=== PATIENT | female | born 1945 | race Caucasian/White ===

== ENCOUNTER 2017-07-27 11:54 | Inpatient (IN) | payer MEDICARE ==
[~2017-07-27] VITALS: Ht 154.9 cm; Wt 50.0 kg
[2017-07-27] MEDS ORDERED: SODIUM CHLOR 0.9% 1000 ML INJ 1,000 ML IV SCH ×2 (12:18→14:46)
--- NOTE | 2017-07-27 12:27 | PD ---
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 She is brought in by her daughter today as she has not been eating or drinking for the past several days and has decreased urinary output as well as severe weakness and dizziness. There has been no specific complaints of fever, chest pain, shortness of breath, abdominal pain, nausea, vomiting, or diarrhea. There is no dysuria. She states the pain is 10 out of 10 in her right face and lateral right neck. Rash is somewhat improved according to her daughter. She has no known drug allergies. PFSH Past Medical History Cardiovascular Problems: Yes (HTN) Respiratory: Yes (ASTHMA) Social History Alcohol Use: No Tobacco Use: No Substance Use: No Allergies-Medications (Allergen,Severity, Reaction): Coded Allergies: No Known Allergies (Unverified , 07/27/17) Reported Meds & Prescriptions Reported Meds & Active Scripts Active Reported Symbicort Inh (Budesonide/Formoterol Fumarate) 80-4.5 Mcg/Act Aero 2 Puff INH Q12HR Methotrexate 2.5 Mg Tab 2.5 Mg PO Q7D Tizanidine (Tizanidine HCl) 4 Mg Cap 4 Mg PO TID Lisinopril-Hctz 10-12.5 Mg Tab 1 Tab PO DAILY Folic Acid 0.8 Mg Tab 1 Mg PO DAILY Allopurinol 100 Mg Tab 100 Mg PO DAILY Atenolol 25 Mg Tab 25 Mg PO DAILY Celecoxib 200 Mg Cap 200 Mg PO BID Acetaminophen-Codeine 300-30 mg Tab 1 Tab PO TID PRN Omeprazole 40 Mg Cap 40 Mg PO DAILY Review of Systems Except as stated in HPI: all other systems reviewed are Neg General / Constitutional: Positive: Weight Loss, No: Fever, Chills Eyes: No: Visual changes HENT: Positive: Headaches, Sore Throat, Neck Pain (see history of present illness), Earache (right from shingles), No: Vertigo, Lightheadedness, Rhinitis , Rhinorrhea, Congestion, Nosebleed, Neck Stiffness, Gingival Bleeding, Dental Difficulties, Ear Discharge Cardiovascular: No: Chest Pain or Discomfort Respiratory: No: Cough, Shortness of Breath, Wheezing Gastrointestinal: Positive: Dysphagia, Loss of Appetite, No: Nausea, Vomiting, Diarrhea, Abdominal Pain Genitourinary: No: Dysuria Musculoskeletal: No: Pain Skin: Positive Rash, Positive Lesions (see history present illness) Neurologic: Positive: Weakness, Dizziness, No: Syncope, Focal Abnormalities, Coordination Problem, Tremor, Ataxia, Headache, Change in Mentation, Slurred Speech, Paresthesia, Incontinence, Seizures, Sensory Disturbance Psychiatric: No: Depression Endocrine: No: Polydipsia Hematologic/Lymphatic: No: Easy Bruising Physical Exam Narrative GENERAL: Patient appears much older than her stated age. Patient has obvious severe weakness. SKIN: Warm and dry. Patient has normal color. Very poor turgor with tenting of the skin noted. Patient has crusted rash to the right anterior neck, and trigeminal distribution on the face. HEAD: Atraumatic. Normocephalic. EYES: Pupils equal and round. No scleral icterus. No injection or drainage. ENT: No nasal bleeding or discharge. Mucous membranes injected and very dry. Airway is patent. Uvula is midline. No significant lymphadenopathy. Question of shingles rash in the posterior pharynx. NECK: Trachea midline. Supple and nontender except for where skin lesions are. CARDIOVASCULAR: Regular rate and rhythm. RESPIRATORY: No accessory muscle use. Clear to auscultation. Breath sounds equal bilaterally. GASTROINTESTINAL: Abdomen soft, non-tender, nondistended. Hepatic and splenic margins not palpable. MUSCULOSKELETAL: Extremities without clubbing, cyanosis, or edema. No obvious deformities. NEUROLOGICAL: Awake and alert. No obvious cranial nerve deficits. Motor grossly within normal limits. Five out of 5 muscle strength in the arms and legs. Normal speech. PSYCHIATRIC: Appropriate mood and affect; insight and judgment normal. Data Data Last Documented VS Vital Signs Date Time Temp Pulse Resp B/P (MAP) Pulse Ox O2 Delivery O2 Flow Rate FiO2 07/27/17 13:52 131 20 152/81 (104) 97 Room Air 07/27/17 12:29 97.4 Orders Orders Complete Blood Count With Diff (07/27/17 12:18) Comprehensive Metabolic Panel (07/27/17 12:18) Lactic Acid (07/27/17 12:18) Prothrombin Time / Inr (Pt) (07/27/17 12:18) Act Partial Throm Time (Ptt) (07/27/17 12:18) Urinalysis - C+S If Indicated (07/27/17 12:18) Iv Access Insert/Monitor (07/27/17 12:18) Ecg Monitoring (07/27/17 12:18) Oximetry (07/27/17 12:18) Morphine Inj (Morphine Inj) (07/27/17 12:30) Ondansetron Inj (Zofran Inj) (07/27/17 12:30) Sodium Chlor 0.9% 1000 Ml Inj (Ns 1000 M (07/27/17 12:18) Sodium Chloride 0.9% Flush (Ns Flush) (07/27/17 12:30) Electrocardiogram (07/27/17 12:18) Chest, Single Ap (07/27/17 12:18) Magnesium (Mg) (07/27/17 12:18) Urine Culture (07/27/17 13:45) Piperacil-Tazo 4.5 Gm Premix (Zosyn 4.5 (07/27/17 14:31) Blood Culture (07/27/17 14:37) Sodium Chlor 0.9% 1000 Ml Inj (Ns 1000 M (07/27/17 14:46) Labs Laboratory Tests Test 07/27/17 12:40 07/27/17 13:45 White Blood Count 12.1 TH/MM3 Red Blood Count 4.42 MIL/MM3 Hemoglobin 15.9 GM/DL Hematocrit 45.7 % Mean Corpuscular Volume 103.4 FL Mean Corpuscular Hemoglobin 36.0 PG Mean Corpuscular Hemoglobin Concent 34.8 % Red Cell Distribution Width 13.8 % Platelet Count 285 TH/MM3 Mean Platelet Volume 8.0 FL Neutrophils (%) (Auto) 56.6 % Lymphocytes (%) (Auto) 25.6 % Monocytes (%) (Auto) 16.5 % Eosinophils (%) (Auto) 0.2 % Basophils (%) (Auto) 1.1 % Neutrophils # (Auto) 6.9 TH/MM3 Lymphocytes # (Auto) 3.1 TH/MM3 Monocytes # (Auto) 2.0 TH/MM3 Eosinophils # (Auto) 0.0 TH/MM3 Basophils # (Auto) 0.1 TH/MM3 CBC Comment DIFF FINAL Differential Comment Prothrombin Time 10.6 SEC Prothromb Time International Ratio 1.0 RATIO Activated Partial Thromboplast Time 25.9 SEC Blood Urea Nitrogen 21 MG/DL Creatinine 0.83 MG/DL Random Glucose 108 MG/DL Total Protein 8.5 GM/DL Albumin 3.7 GM/DL Calcium Level 9.4 MG/DL Magnesium Level 1.9 MG/DL Alkaline Phosphatase 77 U/L Aspartate Amino Transf (AST/SGOT) 31 U/L Alanine Aminotransferase (ALT/SGPT) 21 U/L Total Bilirubin 0.5 MG/DL Sodium Level 123 MEQ/L Potassium Level 4.1 MEQ/L Chloride Level 87 MEQ/L Carbon Dioxide Level 23.8 MEQ/L Anion Gap 12 MEQ/L Estimat Glomerular Filtration Rate 68 ML/MIN Lactic Acid Level 2.2 mmol/L Urine Color YELLOW Urine Turbidity HAZY Urine pH 6.0 Urine Specific [place] 1.018 Urine Protein 100 mg/dL Urine Glucose (UA) NEG mg/dL Urine Ketones 40 mg/dL Urine Occult Blood MOD Urine Nitrite NEG Urine Bilirubin NEG Urine Urobilinogen LESS THAN 2.0 MG/DL Urine Leukocyte Esterase LARGE Urine RBC 40 /hpf Urine WBC 77 /hpf Urine Squamous Epithelial Cells 1 /hpf Urine Bacteria MANY /hpf Urine Mucus FEW /lpf Microscopic Urinalysis Comment CULTURE INDICATED MDM Medical Decision Making Medical Screen Exam Complete: Yes Emergency Medical Condition: Yes Medical Record Reviewed: Yes Differential Diagnosis Facial pain from shingles. Severe dehydration. Electrolyte imbalance. Renal insufficiency. Narrative Course Patient appears medically stable although severely dehydrated and in pain. Labs ordered including CBC, CMP, lactic acid, urinalysis, and magnesium. IV access is obtained and the patient is given 4 mg morphine IV as well as 4 mg Zofran IV. Patient is given 1000 mL's normal saline bolus. Chest x-ray and EKG are ordered as well. EKG shows sinus tachycardia at a rate of 121. Chest x-ray shows possible right lower lobe consolidation. CBC shows leukocytosis of 12.1. CMP significant for sodium 123. Potassium is 4.1, chloride is 87. BUN is 21. Creatinine 0.83. Lactic acid is 2.2. Total protein is 8.5. Coagulation studies are normal. Urinalysis significant for a protein of 100, ketones of 40, moderate occult blood, large leukocyte esterase, 40 RBCs per high-power field, 77 WBCs per high- powered field, many bacteria, and culture is placed Patient is given 4.5 mg of Zosyn IV. Patient is given an additional liter of normal saline bolus. Hospitalist's call for admission. 1510 hrs. discussed the patient with Dr. Hall who accepted the patient for admission. Diagnosis Primary Impression: Urinary tract infection Qualified Codes: N30.01 - Acute cystitis with hematuria Additional Impressions: Hyponatremia Sepsis Qualified Codes: A41.9 - Sepsis, unspecified organism Shingles Qualified Codes: B02.9 - Zoster without complications Admitting Information Admitting Physician Requests: Admit Condition: Stable Cortes Tee Jul 27, 2017 12:27
[2017-07-27 12:29] VITALS: BP 139/67; PULSE 139; RESP 20; TEMP 97.4; O2SAT 99
[2017-07-27] MEDS ORDERED: SODIUM CHLORIDE 0.9% FLUSH 10 ML FLUSH IV FLUSH PRN ×2 (12:30→15:30)
[2017-07-27] MEDS ORDERED: ONDANSETRON HCL 4 MG/2 ML VIAL IVP ONE (12:30)
[2017-07-27] MEDS ORDERED: MORPHINE SULFATE 4 MG/ML INJ IV PUSH ONE (12:30)
[2017-07-27 13:17] LABS: AUTOMATED NEUTROPHIL # 6.9 TH/MM3 (1.8-7.7); BASOPHIL # 0.1 TH/MM3 (0-0.2); BASOPHIL % 1.1 % (0.0-2.0); EOSINOPHIL % 0.2 % (0.0-4.0); HEMATOCRIT 45.7 % (35.0-46.0); HEMO FLAGS DIFF FINAL; LYMPH % 25.6 % (9.0-44.0); LYMPHOCYTE # 3.1 TH/MM3 (1.0-4.8); MEAN CELL VOLUME 103.4 FL (80.0-100.0); MEAN CORPUSCULAR HGB CONC 34.8 % (32.0-36.0); MONO % 16.5 % (0.0-8.0); NEUT % 56.6 % (16.0-70.0); PLATELET COUNT 285 TH/MM3 (150-450); RED BLOOD COUNT 4.42 MIL/MM3 (4.00-5.30); RED CELL DISTRIBUTION WIDTH 13.8 % (11.6-17.2); WHITE BLOOD COUNT 12.1 TH/MM3 (4.0-11.0)
[2017-07-27 13:26] LABS: APTT (PATIENT) 25.9 SEC (24.3-30.1); PROTHROMBIN TIME - PATIENT 10.6 SEC (9.8-11.6)
[2017-07-27] MEDS ORDERED: METH2.5T PO (13:36)
[2017-07-27] MEDS ORDERED: ACET300T2 PO (13:36)
[2017-07-27] MEDS ORDERED: FOLI800T PO (13:36)
[2017-07-27] MEDS ORDERED: TIZA4CAP3 PO (13:36)
[2017-07-27] MEDS ORDERED: ATEN25TA PO (13:36)
[2017-07-27] MEDS ORDERED: ALLO100T PO (13:36)
[2017-07-27] MEDS ORDERED: SYMB80AE INH (13:36)
[2017-07-27] MEDS ORDERED: CELE1CAP8 PO (13:36)
[2017-07-27] MEDS ORDERED: OMEP40CA2 PO (13:36)
[2017-07-27] MEDS ORDERED: LISI10TA PO (13:36)
--- NOTE | 2017-07-27 13:48 | RADRPT ---
EXAM DATE/TIME: 07/27/2017 12:53 [facility] COMPARISON: No previous studies available for comparison. INDICATIONS : Fever, weakness, short of breath, vertigo, shingles on back of head and neck MEDICAL HISTORY : asthma, shingles SURGICAL HISTORY : None. ENCOUNTER: Initial ACUITY: 1 week PAIN SCORE: 3/10 LOCATION: Bilateral chest FINDINGS: There is some consolidation in the right lower lobe. Left lung is clear. The heart and pulmonary va scularity are normal. The portion of the bony skeleton visualized is unremarkable. CONCLUSION: Minimal right lower lobe consolidation.. Fredi Wall MD FACR on July 27, 2017 at 13:45 Board Certified Radiologist. This report was verified electronically.
[2017-07-27 13:50] LABS: ALKALINE PHOSPHATASE 77 U/L (45-117); ALT (GPT) 21 U/L (10-53); ANION GAP 12 MEQ/L (5-15); AST (GOT) 31 U/L (15-37); BICARBONATE 23.8 MEQ/L (21.0-32.0); CHLORIDE 87 MEQ/L (98-107); GLOMERULAR FILTRATION RATE 68 ML/MIN (>89); MAGNESIUM 1.9 MG/DL (1.5-2.5); POTASSIUM 4.1 MEQ/L (3.5-5.1); TOTAL BILIRUBIN ADULT 0.5 MG/DL (0.2-1.0)
[2017-07-27 13:52] VITALS: BP 152/81; PULSE 131; RESP 20; O2SAT 97
[2017-07-27 13:53] LABS: BLOOD UREA NITROGEN 21 MG/DL (7-18)
[2017-07-27 13:55] LABS: SODIUM (NA) 123 MEQ/L (136-145)
[2017-07-27 14:09] LABS: BACTERIA, URINE MANY /hpf; BLOOD, URINE MOD (NEG); GLUCOSE,URINE NEG (NEG); KETONE, URINE 40 mg/dL (NEG); MUCUS URINE FEW /lpf (OCC); NITRITE,URINE NEG (NEG); SQUAMOUS EPITHELIAL CELL URINE 1 /hpf (0-5); URINE COLOR YELLOW (YELLW/STRAW)
[2017-07-27 14:11] LABS: COMMENT (UR) CULTURE INDICATED; CULTURE IF INDICATED CULTURE INDICATED
[2017-07-27] MEDS ORDERED: PIPERACIL-TAZO 4.5 GM PREMIX 100 ML IV STA (14:31)
--- NOTE | 2017-07-27 15:20 | HHI.HP ---
[facility] Ad[facility] Diagnosis Diagnoses: Chief Complaint: Decreased Appetite and do not want to drink water. Travel History International Travel<30 Days: No Contact w/Intl Traveler <30 Da: No Traveled to Known Affected Are: No History of Present Illness This is a pleasant 72 y/o Female with Asthma, who came to ER with 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 There has been no specific complaints of fever, chest pain, shortness of breath, abdominal pain, nausea, vomiting, or diarrhea. There is no dysuria. She states the pain is 10 out of 10 in her right face and lateral right neck. Rash is somewhat improved according to her daughter. She has no known drug allergies. she is been seen in Emergency room in the presence of her daughter Mrs. Mariama Aguayo. Review of Systems ROS Limitations: Altered Mental Status Constitutional: DENIES: Fever, Chills, Change in appetite Endocrine: DENIES: Heat/cold intolerance Eyes: DENIES: Blurred vision, Eye pain Gastrointestinal: COMPLAINS OF: Anorexia Except as stated in HPI: all other systems reviewed are Neg Past Family Social History Past Medical History Hypertension Asthma RA Past Surgical History Tonsillectomy Reported Medications Reported Meds & Active Scripts Active Reported Symbicort Inh (Budesonide/Formoterol Fumarate) 80-4.5 Mcg/Act Aero 2 Puff INH Q12HR Methotrexate 2.5 Mg Tab 2.5 Mg PO Q7D Tizanidine (Tizanidine HCl) 4 Mg Cap 4 Mg PO TID Lisinopril-Hctz 10-12.5 Mg Tab 1 Tab PO DAILY Folic Acid 0.8 Mg Tab 1 Mg PO DAILY Allopurinol 100 Mg Tab 100 Mg PO DAILY Atenolol 25 Mg Tab 25 Mg PO DAILY Celecoxib 200 Mg Cap 200 Mg PO BID Acetaminophen-Codeine 300-30 mg Tab 1 Tab PO TID PRN Omeprazole 40 Mg Cap 40 Mg PO DAILY Allergies: Coded Allergies: No Known Allergies (Unverified , 07/27/17) Family History Mother with DM II, Uterine cancer Father with Autoimmune disease Lupus Brother with Lupus and RA. Social History Lives with her Daughter and denies any toxic habits. Physical Exam Vital Signs Vital Signs Date Time Temp Pulse Resp B/P (MAP) Pulse Ox O2 Delivery O2 Flow Rate FiO2 07/27/17 13:52 131 20 152/81 (104) 97 Room Air 07/27/17 12:29 97.4 139 20 139/67 (91) 99 Room Air 07/27/17 12:29 143 20 07/27/17 12:29 99 Room Air Physical Exam GENERAL: Dehydrated, no acute distress. pale and dry mouth. SKIN: Warm and dry. Patient has normal color. Very poor turgor with tenting of the skin noted. Patient has crusted rash to the right anterior neck, and trigeminal distribution on the face. HEAD: Atraumatic. Normocephalic. EYES: Pupils equal and round. No scleral icterus. No injection or drainage. ENT: No nasal bleeding or discharge. dry mucous membranes. NECK: Trachea midline. Supple and nontender except for where skin lesions are. CARDIOVASCULAR: Regular rate and rhythm. RESPIRATORY: Decreased breath sounds bilateral, with inspiratory crackles on both bases specially on Right base. GASTROINTESTINAL: Abdomen soft, non-tender, nondistended. Hepatic and splenic margins not palpable. MUSCULOSKELETAL: Extremities without clubbing, cyanosis, or edema. NEUROLOGICAL: Awake and alert. No obvious cranial nerve deficits. PSYCHIATRIC: Appropriate mood and affect. Laboratory Laboratory Tests Test 07/27/17 12:40 07/27/17 13:45 White Blood Count 12.1 Red Blood Count 4.42 Hemoglobin 15.9 Hematocrit 45.7 Mean Corpuscular Volume 103.4 Mean Corpuscular Hemoglobin 36.0 Mean Corpuscular Hemoglobin Concent 34.8 Red Cell Distribution Width 13.8 Platelet Count 285 Mean Platelet Volume 8.0 Neutrophils (%) (Auto) 56.6 Lymphocytes (%) (Auto) 25.6 Monocytes (%) (Auto) 16.5 Eosinophils (%) (Auto) 0.2 Basophils (%) (Auto) 1.1 Neutrophils # (Auto) 6.9 Lymphocytes # (Auto) 3.1 Monocytes # (Auto) 2.0 Eosinophils # (Auto) 0.0 Basophils # (Auto) 0.1 CBC Comment DIFF FINAL Differential Comment Prothrombin Time 10.6 Prothromb Time International Ratio 1.0 Activated Partial Thromboplast Time 25.9 Blood Urea Nitrogen 21 Creatinine 0.83 Random Glucose 108 Total Protein 8.5 Albumin 3.7 Calcium Level 9.4 Magnesium Level 1.9 Alkaline Phosphatase 77 Aspartate Amino Transf (AST/SGOT) 31 Alanine Aminotransferase (ALT/SGPT) 21 Total Bilirubin 0.5 Sodium Level 123 Potassium Level 4.1 Chloride Level 87 Carbon Dioxide Level 23.8 Anion Gap 12 Estimat Glomerular Filtration Rate 68 Lactic Acid Level 2.2 Urine Color YELLOW Urine Turbidity HAZY Urine pH 6.0 Urine Specific [place] 1.018 Urine Protein 100 Urine Glucose (UA) NEG Urine Ketones 40 Urine Occult Blood MOD Urine Nitrite NEG Urine Bilirubin NEG Urine Urobilinogen LESS THAN 2.0 Urine Leukocyte Esterase LARGE Urine RBC 40 Urine WBC 77 Urine Squamous Epithelial Cells 1 Urine Bacteria MANY Urine Mucus FEW Microscopic Urinalysis Comment CULTURE INDICATED Date/Time Source Procedure Growth Status 07/27/17 13:45 Urine Clean Catch Urine Culture Pending Received Result Diagram: 07/27/17 1240 07/27/17 1240 Imaging Last Impressions Chest X-Ray 07/27/17 1218 Signed Impressions: Service Date/Time: Thursday, July 27, 2017 12:53 - CONCLUSION: Minimal right lower lobe consolidation.. Fredi Wall MD FACR Caprini VTE Risk Assessment Caprini VTE Risk Assessment: Mod/High Risk (score >= 2) Caprini Risk Assessment Model Point Value = 1 Point Value = 2 Point Value = 3 Point Value = 5 Age 41-60 Minor surgery BMI > 25 kg/m2 Swollen legs Varicose veins or History of unexplained or recurrent spontaneous Oral contraceptives or hormone replacement Sepsis (< 1 month) Serious lung disease, including pneumonia (< 1 month) Abnormal pulmonary function Acute myocardial infarction Congestive heart failure (< 1 month) History of inflammatory bowel disease Medical patient at bed rest Age 61-74 Arthroscopic surgery Major open surgery (> 45 min) Laparoscopic surgery (> 45 min) Malignancy Confined to bed (> 72 hours) Immobilizing plaster cast Central venous access Age >= 75 History of VTE Family history of VTE Factor V Leiden Prothrombin [id number] Lupus anticoagulant Anticardiolipin antibodies Elevated serum homocysteine Heparin-induced thrombocytopenia Other congenital or acquired thrombophilia Stroke (< 1 month) Elective arthroplasty Hip, pelvis, or leg fracture Acute spinal cord injury (< 1 month) Prophylaxis Regimen Total Risk Factor Score Risk Level Prophylaxis Regimen 0-1 Low Early ambulation 2 Moderate Order ONE of the following: *Sequential Compression Device (SCD) *Heparin 5000 units SQ BID 3-4 Higher Order ONE of the following medications: *Heparin 5000 units SQ TID *Enoxaparin/Lovenox 40 mg SQ daily (WT < 150 kg, CrCl > 30 mL/min) *Enoxaparin/Lovenox 30 mg SQ daily (WT < 150 kg, CrCl > 10-29 mL/min) *Enoxaparin/Lovenox 30 mg SQ BID (WT < 150 kg, CrCl > 30 mL/min) AND/OR *Sequential Compression Device (SCD) 5 or more Highest Order ONE of the following medications: *Heparin 5000 units SQ TID (Preferred with Epidurals) *Enoxaparin/Lovenox 40 mg SQ daily (WT < 150 kg, CrCl > 30 mL/min) *Enoxaparin/Lovenox 30 mg SQ daily (WT < 150 kg, CrCl > 10-29 mL/min) *Enoxaparin/Lovenox 30 mg SQ BID (WT < 150 kg, CrCl > 30 mL/min) AND *Sequential Compression Device (SCD) Assessment and Plan Assessment and Plan 1. Sepsis secondary to UTI and Right lower lung consolidations Pneumonia will continue Bronchodilator, Mucolytic and incentive spirometry, also Ceftriaxone and Azithromycin, follow blood culture, sputum, culture Legionella antigen and Pneumococcal antigen, Leukocytosis 2. Dehydration continue IV fluids and started diet. dehydration 3. Hyponatremia probable secondary to Dehydration will continue IV fluids at this time 4. RA by history continue Home medicines 5. Hypertension controlled. continue Home medicines. DVT prophylaxis with Lovenox. PT evaluation and manager security for evaluation. Code Status Full Code. Discussed Condition With Cortes Tee Physician Certification 2 Midnight Certification Type: Admission for Inpatient Services Order for Inpatient Services The services are ordered in accordance with Medicare regulations or non- Medicare payer requirements, as applicable. In the case of services not specified as inpatient-only, they are appropriately provided as inpatient services in accordance with the 2-midnight benchmark. Estimated LOS (days): 3 days is the estimated time the patient will need to remain in the hospital, assuming treatment plan goals are met and no additional complications. Post-Hospital Plan: Not yet determined Deacon Hernandez MD Jul 27, 2017 15:20
[2017-07-27] MEDS ORDERED: NALOXONE HCL 0.4 MG/ML AMP IV PUSH PRN (15:30)
[2017-07-27] MEDS ORDERED: ACETAMINOPHEN 325 MG TAB PO PRN (15:30)
[2017-07-27] MEDS ORDERED: MAGNESIUM HYDROXIDE SUSP 30 ML CUP PO PRN (15:30)
[2017-07-27] MEDS ORDERED: LACTULOSE SYRUP 20 GM/30 ML CUP PO PRN (15:30)
[2017-07-27] MEDS ORDERED: cefTRIAXone INJ 1,000 MG in SODIUM CHLORIDE 0.9% INJ 100 ML IV ONE (15:30)
[2017-07-27] MEDS ORDERED: SENNOSIDES 8.6 MG TAB PO PRN (15:30)
[2017-07-27] MEDS ORDERED: ONDANSETRON HCL 4 MG/2 ML VIAL IVP PRN (15:30)
[2017-07-27] MEDS ORDERED: BISACODYL 10 MG SUPP RECTAL PRN (15:30)
[2017-07-27] MEDS: RESP: ALBUTEROL 2.5 MG/IPRATROPIUM 0.5 MG NEB (SCH) NEB (15:40)
[2017-07-27 15:41] VITALS: O2SAT 95
[2017-07-27] MEDS ORDERED: PILL SPLITTER OTHER PRN (16:15)
[2017-07-27 17:12] VITALS: BP 138/77; PULSE 126; RESP 20; O2SAT 96
[2017-07-27] MEDS: SODIUM CHLOR 0.9% 1000 ML INJ 1,000 ML IV SCH (17:26)
[2017-07-27] MEDS: ENOXAPARIN SODIUM 40 MG/0.4 ML SYRINGE SQ SCH (17:27)
[2017-07-27] MEDS: AZITHROMYCIN INJ 500 MG in SODIUM CHLOR 0.9% 250 ML INJ 250 ML IV SCH (17:27)
[2017-07-27 19:19] VITALS: BP 119/58; PULSE 142; RESP 20; O2SAT 96
[2017-07-27 20:00] VITALS: BP 123/62; PULSE 125; RESP 20; TEMP 96.5; O2SAT 100
[2017-07-27] MEDS: guaiFENesin E.R. 600 MG TAB PO SCH (20:32)
[2017-07-27] MEDS: SODIUM CHLORIDE 0.9% FLUSH 10 ML FLUSH IV FLUSH SCH (20:32)
[2017-07-27] MEDS: DOCUSATE SODIUM 50 MG/SENNA 8.6 MG TAB PO SCH (20:32)
[2017-07-28] VITALS (9 sets, daily range): BP systolic 92–136; BP diastolic 56–63; PULSE 88–111; RESP 16–20; TEMP 96.5–98; O2SAT 95–100
[2017-07-28] MEDS: SODIUM CHLOR 0.9% 1000 ML INJ 1,000 ML IV SCH ×2 (02:00→13:28)
[2017-07-28] MEDS: RESP: ALBUTEROL 2.5 MG/IPRATROPIUM 0.5 MG NEB (SCH) NEB ×4 (04:24→21:39)
[2017-07-28] MEDS: ACETAMINOPHEN/CODEINE 300 MG/30 MG TAB PO PRN ×2 (04:47→11:22)
--- NOTE | 2017-07-28 07:59 | HHI.PR ---
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 There has been no specific complaints of fever, chest pain, shortness of breath, abdominal pain, nausea, vomiting, or diarrhea. There is no dysuria. She states the pain is 10 out of 10 in her right face and lateral right neck. Rash is somewhat improved according to her daughter. She has no known drug allergies. she is been seen in Emergency room in the presence of her daughter Mrs. Mariama Aguayo. 07/28: Seen in her bedroom she has some Headache, but stable encourage for ambulation with Physical Therapy specialist asked yesterday and awaiting for recommendations, she normally takes Tylenol #3 at home, no nausea, vomit or diarrhea, discussed with nurse Miss Trang delgadillo. Objective Vital Signs Date Time Temp Pulse Resp B/P (MAP) Pulse Ox O2 Delivery O2 Flow Rate FiO2 07/28/17 04:27 100 07/28/17 04:00 98.0 111 20 136/63 (87) 100 07/28/17 00:00 98.0 104 20 127/60 (82) 100 07/27/17 20:00 96.5 125 20 123/62 (82) 100 07/27/17 19:36 07/27/17 19:19 142 20 119/58 (78) 96 Room Air 07/27/17 17:12 126 20 138/77 (97) 96 Room Air 07/27/17 15:41 95 21 07/27/17 13:52 131 20 152/81 (104) 97 Room Air 07/27/17 12:29 97.4 139 20 139/67 (91) 99 Room Air 07/27/17 12:29 143 20 07/27/17 12:29 99 Room Air I/O 07/27/17 07/27/17 07/27/17 07/28/17 07/28/17 07/28/17 07:00 15:00 23:00 07:00 15:00 23:00 Intake Total 1000 ml 1000 ml Balance 1000 ml 1000 ml Intake IV Total 1000 ml 1000 ml # Voids 1 1 Result Diagram: 07/27/17 1240 07/27/17 1240 Imaging Last Impressions Chest X-Ray 07/27/17 1218 Signed Impressions: Service Date/Time: Thursday, July 27, 2017 12:53 - CONCLUSION: Minimal right lower lobe consolidation.. Fredi Wall MD FACR Procedures None Other Results Laboratory Tests Test 07/27/17 12:40 07/27/17 13:45 07/27/17 16:35 White Blood Count 12.1 TH/MM3 Red Blood Count 4.42 MIL/MM3 Hemoglobin 15.9 GM/DL Hematocrit 45.7 % Mean Corpuscular Volume 103.4 FL Mean Corpuscular Hemoglobin 36.0 PG Mean Corpuscular Hemoglobin Concent 34.8 % Red Cell Distribution Width 13.8 % Platelet Count 285 TH/MM3 Mean Platelet Volume 8.0 FL Neutrophils (%) (Auto) 56.6 % Lymphocytes (%) (Auto) 25.6 % Monocytes (%) (Auto) 16.5 % Eosinophils (%) (Auto) 0.2 % Basophils (%) (Auto) 1.1 % Neutrophils # (Auto) 6.9 TH/MM3 Lymphocytes # (Auto) 3.1 TH/MM3 Monocytes # (Auto) 2.0 TH/MM3 Eosinophils # (Auto) 0.0 TH/MM3 Basophils # (Auto) 0.1 TH/MM3 CBC Comment DIFF FINAL Differential Comment Prothrombin Time 10.6 SEC Prothromb Time International Ratio 1.0 RATIO Activated Partial Thromboplast Time 25.9 SEC Blood Urea Nitrogen 21 MG/DL Creatinine 0.83 MG/DL Random Glucose 108 MG/DL Total Protein 8.5 GM/DL Albumin 3.7 GM/DL Calcium Level 9.4 MG/DL Magnesium Level 1.9 MG/DL Alkaline Phosphatase 77 U/L Aspartate Amino Transf (AST/SGOT) 31 U/L Alanine Aminotransferase (ALT/SGPT) 21 U/L Total Bilirubin 0.5 MG/DL Sodium Level 123 MEQ/L Potassium Level 4.1 MEQ/L Chloride Level 87 MEQ/L Carbon Dioxide Level 23.8 MEQ/L Anion Gap 12 MEQ/L Estimat Glomerular Filtration Rate 68 ML/MIN Total Creatine Kinase 136 U/L Troponin I 0.03 NG/ML Urine Color YELLOW Urine Turbidity HAZY Urine pH 6.0 Urine Specific [place] 1.018 Urine Protein 100 mg/dL Urine Glucose (UA) NEG mg/dL Urine Ketones 40 mg/dL Urine Occult Blood MOD Urine Nitrite NEG Urine Bilirubin NEG Urine Urobilinogen LESS THAN 2.0 MG/DL Urine Leukocyte Esterase LARGE Urine RBC 40 /hpf Urine WBC 77 /hpf Urine Squamous Epithelial Cells 1 /hpf Urine Bacteria MANY /hpf Urine Mucus FEW /lpf Microscopic Urinalysis Comment CULTURE INDICATED Lactic Acid Level 1.1 mmol/L Objective Remarks GENERAL: Dehydrated, no acute distress. pale and dry mouth. SKIN: Warm and dry. Patient has normal color. Very poor turgor with tenting of the skin noted. Patient has crusted rash to the right anterior neck, and trigeminal distribution on the face. HEAD: Atraumatic. Normocephalic. EYES: Pupils equal and round. No scleral icterus. No injection or drainage. ENT: No nasal bleeding or discharge. dry mucous membranes. NECK: Trachea midline. Supple and nontender except for where skin lesions are. CARDIOVASCULAR: Regular rate and rhythm. RESPIRATORY: Decreased breath sounds bilateral, with inspiratory crackles on both bases specially on Right base. GASTROINTESTINAL: Abdomen soft, non-tender, nondistended. Hepatic and splenic margins not palpable. MUSCULOSKELETAL: Extremities without clubbing, cyanosis, or edema. NEUROLOGICAL: Awake and alert. No obvious cranial nerve deficits. PSYCHIATRIC: Appropriate mood and affect. Medications and IVs Current Medications Medications (Trade) Dose Ordered Sig/Cristiano Route Start Time Stop Time Status Last Admin Sodium Chloride 1,000 ml @ 100 mls/hr Q10H IV 07/27/17 16:00 07/28/17 02:00 (NS Flush) 2 ml UNSCH PRN IV FLUSH 07/27/17 15:30 (NS Flush) 2 ml BID IV FLUSH 07/27/17 21:00 07/27/17 20:32 (Tylenol) 650 mg Q4H PRN PO 07/27/17 15:30 (Zofran Inj) 4 mg Q6H PRN IVP 07/27/17 15:30 (Lovenox Inj) 40 mg Q24H SQ 07/27/17 16:00 07/27/17 17:27 (Narcan Inj) 0.4 mg UNSCH PRN IV PUSH 07/27/17 15:30 (Tessy-Colace) 1 tab BID PO 07/27/17 21:00 07/27/17 20:32 (Milk Of Magnesia Liq) 30 ml Q12H PRN PO 07/27/17 15:30 (Senokot) 17.2 mg Q12H PRN PO 07/27/17 15:30 (Dulcolax Supp) 10 mg DAILY PRN RECTAL 07/27/17 15:30 (Lactulose Liq) 30 ml DAILY PRN PO 07/27/17 15:30 Ceftriaxone Sodium 1000 mg/ Sodium Chloride 100 ml @ 200 mls/hr Q24H IV 07/28/17 16:00 Azithromycin 500 mg/Sodium Chloride 250 ml @ 250 mls/hr Q24H IV 07/27/17 17:00 07/27/17 17:27 (Duoneb Neb) 1 ampule Q6HR NEB NEB 07/27/17 16:00 07/28/17 04:24 (Mucinex Er) 600 mg BID PO 07/27/17 21:00 07/27/17 20:32 (Tylenol-Codeine #3) 1 tab TID PRN PO 07/27/17 15:45 07/28/17 04:47 (Zyloprim) 100 mg DAILY PO 07/28/17 09:00 (Tenormin) 25 mg DAILY PO 07/28/17 09:00 (Folate) 1 mg DAILY PO 07/28/17 09:00 (Zanaflex) 4 mg TID PO 07/27/17 18:00 07/27/17 19:47 (Prinivil) 10 mg DAILY PO 07/28/17 09:00 (Protonix) 40 mg DAILY PO 07/28/17 09:00 (Hydrodiuril) 12.5 mg DAILY PO 07/28/17 09:00 (Pill Splitter) 1 ea UNSCH PRN OTHER 07/27/17 16:15 A/P Assessment and Plan 1. Sepsis secondary to UTI and Right lower lung consolidations Pneumonia will continue Bronchodilator, Mucolytic and incentive spirometry, also Ceftriaxone and Azithromycin, follow blood culture, sputum, culture Legionella antigen and Pneumococcal antigen, Leukocytosis Improving. 2. Dehydration continue IV fluids and started diet. dehydration 3. Hyponatremia probable secondary to Dehydration decreased IV fluids to 42 ml per hour. 4. RA by history continue Home medicines 5. Hypertension controlled. continue Home medicines. DVT prophylaxis with Lovenox. PT evaluation and product engineering manager for evaluation. Code Status Full Code. Discussed Condition With Patient and nurse Miss Costello appreciated. all questions answered to the best of my abilities. Discharge Planning Expected in one to two days. Deacon Hernandez MD Jul 28, 2017 07:58
[2017-07-28] MEDS: SODIUM CHLORIDE 0.9% FLUSH 10 ML FLUSH IV FLUSH SCH ×2 (09:00→19:59)
[2017-07-28] MEDS: DOCUSATE SODIUM 50 MG/SENNA 8.6 MG TAB PO SCH ×2 (09:00→20:00)
[2017-07-28] MEDS: guaiFENesin E.R. 600 MG TAB PO SCH ×2 (09:21→19:59)
[2017-07-28] MEDS: HYDROCHLOROTHIAZIDE 25 MG TAB PO SCH (09:22)
[2017-07-28] MEDS: ATENOLOL 25 MG TAB PO SCH (09:23)
[2017-07-28] MEDS: ALLOPURINOL 100 MG TAB PO SCH (09:23)
[2017-07-28] MEDS: PANTOPRAZOLE SOD 40 MG DELAYED RELEASE TAB PO SCH (09:23)
[2017-07-28] MEDS: LISINOPRIL 10 MG TAB PO SCH (09:23)
[2017-07-28] MEDS: FOLIC ACID 1 MG TAB PO SCH (09:24)
[2017-07-28 09:33] LABS: AUTOMATED NEUTROPHIL # 6.4 TH/MM3 (1.8-7.7); BASOPHIL # 0.1 TH/MM3 (0-0.2); BASOPHIL % 0.8 % (0.0-2.0); EOSINOPHIL # 0.1 TH/MM3 (0-0.4); EOSINOPHIL % 0.6 % (0.0-4.0); HEMATOCRIT 33.4 % (35.0-46.0); HEMO FLAGS DIFF FINAL; LYMPH % 26.8 % (9.0-44.0); LYMPHOCYTE # 2.9 TH/MM3 (1.0-4.8); MEAN CELL VOLUME 104.3 FL (80.0-100.0); MEAN CORPUSCULAR HEMOGLOBIN 35.8 PG (27.0-34.0); MEAN CORPUSCULAR HGB CONC 34.3 % (32.0-36.0); MONO % 12.5 % (0.0-8.0); NEUT % 59.3 % (16.0-70.0); PLATELET COUNT 221 TH/MM3 (150-450); RED CELL DISTRIBUTION WIDTH 14.2 % (11.6-17.2); WHITE BLOOD COUNT 10.7 TH/MM3 (4.0-11.0)
[2017-07-28 10:08] LABS: ANION GAP 9 MEQ/L (5-15); AST (GOT) 19 U/L (15-37); BICARBONATE 22.6 MEQ/L (21.0-32.0); BLOOD UREA NITROGEN 12 MG/DL (7-18); CHLORIDE 102 MEQ/L (98-107); GLOMERULAR FILTRATION RATE 116 ML/MIN (>89); POTASSIUM 3.4 MEQ/L (3.5-5.1); SODIUM (NA) 134 MEQ/L (136-145)
[2017-07-28 10:10] LABS: ALKALINE PHOSPHATASE 54 U/L (45-117); ALT (GPT) 16 U/L (10-53); TOTAL BILIRUBIN ADULT 0.3 MG/DL (0.2-1.0)
[2017-07-28] MEDS ORDERED: cefTRIAXone INJ 1,000 MG in SODIUM CHLORIDE 0.9% INJ 100 ML IV SCH (16:00)
[2017-07-28] MEDS: ENOXAPARIN SODIUM 40 MG/0.4 ML SYRINGE SQ SCH (18:25)
[2017-07-28] MEDS: AZITHROMYCIN INJ 500 MG in SODIUM CHLOR 0.9% 250 ML INJ 250 ML IV SCH (19:59)
--- NOTE | 2017-07-28 21:11 | EKG ---
Date Performed: 07/27/2017 Time Performed: 12:36:00 PTAGE: 72 years EKG: SINUS TACHYCARDIA MARKED LEFT AXIS DEVIATION POOR R-WAVE PROGRESSION LEFT ANTERIOR FASCICUL AR BLOCK ABNORMAL ECG PREVIOUS TRACING : 07/17/2017 11.31 DOCTOR: Brendan Beauchamp Interpretating Date/Time 07/28/2017 21:10:14
[2017-07-29] VITALS (7 sets, daily range): BP systolic 96–137; BP diastolic 53–75; PULSE 90–105; RESP 17–19; TEMP 95.5–97.9; O2SAT 95–99
[2017-07-29] MEDS: RESP: ALBUTEROL 2.5 MG/IPRATROPIUM 0.5 MG NEB (SCH) NEB ×3 (03:26→16:21)
[2017-07-29] MEDS ORDERED: POTASSIUM CHLORIDE 20 MEQ CONTROLLED RELEASE TAB PO ONE (08:00)
--- NOTE | 2017-07-29 08:19 | HHI.PR ---
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 There has been no specific complaints of fever, chest pain, shortness of breath, abdominal pain, nausea, vomiting, or diarrhea. There is no dysuria. She states the pain is 10 out of 10 in her right face and lateral right neck. Rash is somewhat improved according to her daughter. She has no known drug allergies. she is been seen in Emergency room in the presence of her daughter Mrs. Mariama Aguayo. 07/28: Seen in her bedroom she has some Headache, but stable encourage for ambulation with Physical Therapy specialist asked yesterday and awaiting for recommendations, she normally takes Tylenol #3 at home. 07/29: Stable in her bedroom no nausea, vomit or diarrhea, replaced Potassium level also she has been on IV fluids, at low dose she wants to go home, discussed with nurse Pau will give the antibiotics early today and probable will go home on [facility] to continue SNF for PT and Objective Vital Signs Date Time Temp Pulse Resp B/P (MAP) Pulse Ox O2 Delivery O2 Flow Rate FiO2 07/29/17 04:00 97.4 105 18 137/68 (91) 96 07/29/17 03:26 99 07/29/17 00:00 97.9 90 18 122/70 (87) 96 07/28/17 20:00 97.8 88 20 113/56 (75) 100 07/28/17 16:33 98 21 07/28/17 16:00 96.9 88 17 106/60 (75) 95 07/28/17 12:00 96.5 93 16 92/56 (68) 98 07/28/17 08:56 98 21 I/O 07/28/17 07/28/17 07/28/17 07/29/17 07/29/17 07/29/17 07:00 15:00 23:00 07:00 15:00 23:00 Intake Total 1000 ml 360 ml Output Total 1 ml Balance 1000 ml 360 ml -1 ml Intake Oral 360 ml IV Total 1000 ml Output Stool Total 1 ml # Voids 1 1 1 # Bowel Movements 0 Result Diagram: 07/28/17 0629 07/28/17 0629 Imaging Last Impressions Chest X-Ray 07/27/17 1218 Signed Impressions: Service Date/Time: Thursday, July 27, 2017 12:53 - CONCLUSION: Minimal right lower lobe consolidation.. Fredi Wall MD FACR Procedures None Other Results Laboratory Tests Test 07/27/17 12:40 07/27/17 13:45 07/27/17 16:35 07/28/17 06:29 Prothrombin Time 10.6 SEC Prothromb Time International Ratio 1.0 RATIO Activated Partial Thromboplast Time 25.9 SEC Blood Urea Nitrogen 21 MG/DL 12 MG/DL Creatinine 0.83 MG/DL 0.52 MG/DL Random Glucose 108 MG/DL 75 MG/DL Total Protein 8.5 GM/DL 5.8 GM/DL Albumin 3.7 GM/DL 2.6 GM/DL Calcium Level 9.4 MG/DL 7.5 MG/DL Magnesium Level 1.9 MG/DL Alkaline Phosphatase 77 U/L 54 U/L Aspartate Amino Transf (AST/SGOT) 31 U/L 19 U/L Alanine Aminotransferase (ALT/SGPT) 21 U/L 16 U/L Total Bilirubin 0.5 MG/DL 0.3 MG/DL Sodium Level 123 MEQ/L 134 MEQ/L Potassium Level 4.1 MEQ/L 3.4 MEQ/L Chloride Level 87 MEQ/L 102 MEQ/L Carbon Dioxide Level 23.8 MEQ/L 22.6 MEQ/L Total Creatine Kinase 136 U/L Troponin I 0.03 NG/ML Urine Color YELLOW Urine Turbidity HAZY Urine pH 6.0 Urine Specific [place] 1.018 Urine Protein 100 mg/dL Urine Glucose (UA) NEG mg/dL Urine Ketones 40 mg/dL Urine Occult Blood MOD Urine Nitrite NEG Urine Bilirubin NEG Urine Urobilinogen LESS THAN 2.0 MG/DL Urine Leukocyte Esterase LARGE Urine RBC 40 /hpf Urine WBC 77 /hpf Urine Squamous Epithelial Cells 1 /hpf Urine Bacteria MANY /hpf Urine Mucus FEW /lpf Microscopic Urinalysis Comment CULTURE INDICATED Lactic Acid Level 1.1 mmol/L White Blood Count 10.7 TH/MM3 Red Blood Count 3.20 MIL/MM3 Hemoglobin 11.4 GM/DL Hematocrit 33.4 % Mean Corpuscular Volume 104.3 FL Mean Corpuscular Hemoglobin 35.8 PG Mean Corpuscular Hemoglobin Concent 34.3 % Red Cell Distribution Width 14.2 % Platelet Count 221 TH/MM3 Mean Platelet Volume 8.1 FL Neutrophils (%) (Auto) 59.3 % Lymphocytes (%) (Auto) 26.8 % Monocytes (%) (Auto) 12.5 % Eosinophils (%) (Auto) 0.6 % Basophils (%) (Auto) 0.8 % Neutrophils # (Auto) 6.4 TH/MM3 Lymphocytes # (Auto) 2.9 TH/MM3 Monocytes # (Auto) 1.3 TH/MM3 Eosinophils # (Auto) 0.1 TH/MM3 Basophils # (Auto) 0.1 TH/MM3 CBC Comment DIFF FINAL Differential Comment Anion Gap 9 MEQ/L Estimat Glomerular Filtration Rate 116 ML/MIN Objective Remarks GENERAL: Dehydrated, no acute distress. pale and dry mouth. SKIN: Warm and dry. Patient has normal color. Very poor turgor with tenting of the skin noted. Patient has crusted rash to the right anterior neck, and trigeminal distribution on the face. HEAD: Atraumatic. Normocephalic. EYES: Pupils equal and round. No scleral icterus. No injection or drainage. ENT: No nasal bleeding or discharge. dry mucous membranes. NECK: Trachea midline. Supple and nontender except for where skin lesions are. CARDIOVASCULAR: Regular rate and rhythm. RESPIRATORY: Decreased breath sounds bilateral, with inspiratory crackles on both bases specially on Right base. GASTROINTESTINAL: Abdomen soft, non-tender, nondistended. Hepatic and splenic margins not palpable. MUSCULOSKELETAL: Extremities without clubbing, cyanosis, or edema. NEUROLOGICAL: Awake and alert. No obvious cranial nerve deficits. PSYCHIATRIC: Appropriate mood and affect. Medications and IVs Current Medications Medications (Trade) Dose Ordered Sig/Cristiano Route Start Time Stop Time Status Last Admin Sodium Chloride 1,000 ml @ 42 mls/hr [id number] IV 07/27/17 16:00 07/28/17 02:00 (NS Flush) 2 ml UNSCH PRN IV FLUSH 07/27/17 15:30 (NS Flush) 2 ml BID IV FLUSH 07/27/17 21:00 07/28/17 19:59 (Tylenol) 650 mg Q4H PRN PO 07/27/17 15:30 (Zofran Inj) 4 mg Q6H PRN IVP 07/27/17 15:30 (Lovenox Inj) 40 mg Q24H SQ 07/27/17 16:00 07/28/17 18:25 (Narcan Inj) 0.4 mg UNSCH PRN IV PUSH 07/27/17 15:30 (Tessy-Colace) 1 tab BID PO 07/27/17 21:00 07/28/17 20:00 (Milk Of Magnesia Liq) 30 ml Q12H PRN PO 07/27/17 15:30 (Senokot) 17.2 mg Q12H PRN PO 07/27/17 15:30 (Dulcolax Supp) 10 mg DAILY PRN RECTAL 07/27/17 15:30 (Lactulose Liq) 30 ml DAILY PRN PO 07/27/17 15:30 Ceftriaxone Sodium 1000 mg/ Sodium Chloride 100 ml @ 200 mls/hr Q24H IV 07/28/17 16:00 07/28/17 18:25 Azithromycin 500 mg/Sodium Chloride 250 ml @ 250 mls/hr Q24H IV 07/27/17 17:00 07/28/17 19:59 (Duoneb Neb) 1 ampule Q6HR NEB NEB 07/27/17 16:00 07/29/17 03:26 (Mucinex Er) 600 mg BID PO 07/27/17 21:00 07/28/17 19:59 (Tylenol-Codeine #3) 1 tab TID PRN PO 07/27/17 15:45 07/28/17 11:22 (Zyloprim) 100 mg DAILY PO 07/28/17 09:00 07/28/17 09:23 (Tenormin) 25 mg DAILY PO 07/28/17 09:00 07/28/17 09:23 (Folate) 1 mg DAILY PO 07/28/17 09:00 07/28/17 09:24 (Zanaflex) 4 mg TID PO 07/27/17 18:00 07/28/17 18:25 (Prinivil) 10 mg DAILY PO 07/28/17 09:00 07/28/17 09:23 (Protonix) 40 mg DAILY PO 07/28/17 09:00 07/28/17 09:23 (Hydrodiuril) 12.5 mg DAILY PO 07/28/17 09:00 07/28/17 09:22 (Pill Splitter) 1 ea UNSCH PRN OTHER 07/27/17 16:15 A/P Assessment and Plan 1. Sepsis secondary to UTI and Right lower lung consolidations Pneumonia will continue Bronchodilator, Mucolytic and incentive spirometry, also Ceftriaxone and Azithromycin, blood cultures negative, Leukocytosis improved afebrile will give her antibiotics early and will discharge later today she will go to Home with [facility] for PT and Skilled nurse follow up. Gram negative rods not yet sensitive. 2. Dehydration Improved. 3. Hyponatremia probable secondary to Dehydration decreased IV fluids to 42 ml per hour. 4. RA by history continue Home medicines 5. Hypertension controlled. continue Home medicines. DVT prophylaxis with Lovenox. Code Status Full Code. Discussed Condition With Patient and nurse Miss Mai appreciated. all questions answered to the best of my abilities. Discharge Planning Expected later today. Deacon Hernandez MD Jul 29, 2017 08:19
--- NOTE | 2017-07-29 08:21 | HHI.FF ---
Face to Face Verification Diagnosis: (1) Pneumonia (2) Urinary tract infection (3) Sepsis Physical Therapy Order: Evaluate and Treat, Improve ambulation, Strength and gait training Home Health Nursing Order: Medical education Signs/symptoms of disease process Medication education-adverse effect Nursing assessment with vital signs I have seen patient Elina Rahman on 07/29/17. My clinical findings support the need for the requested home health care services because: Ltd mobility - disease progression I certify that my clinical findings support that this patient is homebound because: Unsafe to leave home unassisted Deacon Hernandez MD Jul 29, 2017 08:21
[2017-07-29] MEDS: DOCUSATE SODIUM 50 MG/SENNA 8.6 MG TAB PO SCH (09:00)
[2017-07-29] MEDS: SODIUM CHLORIDE 0.9% FLUSH 10 ML FLUSH IV FLUSH SCH (09:00)
[2017-07-29] MEDS ORDERED: WALKER WHEELS/F1 MIS (09:25)
[2017-07-29] MEDS ORDERED: COMMODE BEDSIDE1 MI1 (09:26)
[2017-07-29] MEDS: ACETAMINOPHEN/CODEINE 300 MG/30 MG TAB PO PRN ×2 (09:33→17:20)
[2017-07-29] MEDS: PANTOPRAZOLE SOD 40 MG DELAYED RELEASE TAB PO SCH (09:35)
[2017-07-29] MEDS: HYDROCHLOROTHIAZIDE 25 MG TAB PO SCH (09:36)
[2017-07-29] MEDS: ATENOLOL 25 MG TAB PO SCH (09:36)
[2017-07-29] MEDS: ALLOPURINOL 100 MG TAB PO SCH (09:37)
[2017-07-29] MEDS: LISINOPRIL 10 MG TAB PO SCH (09:38)
[2017-07-29] MEDS: FOLIC ACID 1 MG TAB PO SCH (09:39)
[2017-07-29] MEDS: guaiFENesin E.R. 600 MG TAB PO SCH (09:39)
[2017-07-29] MEDS ORDERED: AMOX875T2 PO (15:31)
--- NOTE | 2017-07-29 15:32 | HHI.DS ---
Discharge Summary Admission Date Jul 27, 2017 at 15:24 Discharge Date: Jul 29, 2017 Admitting Diagnosis (1) Sepsis ICD Code: A41.9 - Sepsis, unspecified organism Diagnosis: Principal Status: Acute (2) Pneumonia ICD Code: J18.9 - Pneumonia, unspecified organism Diagnosis: Principal (3) Urinary tract infection ICD Code: N39.0 - Urinary tract infection, site not specified Diagnosis: Principal Status: Acute (4) Shingles ICD Code: B02.9 - Zoster without complications Diagnosis: Secondary Status: Acute (5) Hyponatremia ICD Code: E87.1 - Hypo-osmolality and hyponatremia Diagnosis: Principal Status: Acute Procedures None Brief History - From Admission This is a pleasant 72 y/o Female with Asthma, who came to ER with 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 There has been no specific complaints of fever, chest pain, shortness of breath, abdominal pain, nausea, vomiting, or diarrhea. There is no dysuria. She states the pain is 10 out of 10 in her right face and lateral right neck. Rash is somewhat improved according to her daughter. She has no known drug allergies. she is been seen in Emergency room in the presence of her daughter Mrs. Mariama Aguayo. CBC/BMP: 07/28/17 0629 07/28/17 0629 Significant Findings Laboratory Tests Test 07/27/17 12:40 07/27/17 13:45 07/27/17 16:35 07/28/17 06:29 White Blood Count 12.1 TH/MM3 (4.0-11.0) Hemoglobin 15.9 GM/DL (11.6-15.3) 11.4 GM/DL (11.6-15.3) Mean Corpuscular Volume 103.4 FL (80.0-100.0) 104.3 FL (80.0-100.0) Mean Corpuscular Hemoglobin 36.0 PG (27.0-34.0) 35.8 PG (27.0-34.0) Monocytes (%) (Auto) 16.5 % (0.0-8.0) 12.5 % (0.0-8.0) Monocytes # (Auto) 2.0 TH/MM3 (0-0.9) 1.3 TH/MM3 (0-0.9) Blood Urea Nitrogen 21 MG/DL (7-18) Random Glucose 108 MG/DL (74-106) Total Protein 8.5 GM/DL (6.4-8.2) 5.8 GM/DL (6.4-8.2) Sodium Level 123 MEQ/L (136-145) 134 MEQ/L (136-145) Chloride Level 87 MEQ/L (98-107) Estimat Glomerular Filtration Rate 68 ML/MIN (>89) Lactic Acid Level 2.2 mmol/L (0.4-2.0) Urine Turbidity HAZY (CLEAR) Urine Protein 100 mg/dL (NEG-TRACE) Urine Ketones 40 mg/dL (NEG) Urine Occult Blood MOD (NEG) Urine Leukocyte Esterase LARGE (NEG) Urine RBC 40 /hpf (0-3) Urine WBC 77 /hpf (0-5) Urine Bacteria MANY /hpf (NONE) Urine Mucus FEW /lpf (OCC) Red Blood Count 3.20 MIL/MM3 (4.00-5.30) Hematocrit 33.4 % (35.0-46.0) Albumin 2.6 GM/DL (3.4-5.0) Calcium Level 7.5 MG/DL (8.5-10.1) Potassium Level 3.4 MEQ/L (3.5-5.1) Imaging Last Impressions Chest X-Ray 07/27/17 1218 Signed Impressions: Service Date/Time: Thursday, July 27, 2017 12:53 - CONCLUSION: Minimal right lower lobe consolidation.. Fredi Wall MD FACR PE at Discharge GENERAL: Well developed, no acute distress. SKIN: Warm and dry. Patient has normal color. Very poor turgor with tenting of the skin noted. Patient has crusted rash to the right anterior neck, and trigeminal distribution on the face. HEAD: Atraumatic. Normocephalic. EYES: Pupils equal and round. No scleral icterus. No injection or drainage. ENT: No nasal bleeding or discharge. dry mucous membranes. NECK: Trachea midline. Supple and nontender except for where skin lesions are. CARDIOVASCULAR: Regular rate and rhythm. RESPIRATORY: Decreased breath sounds bilateral, but no crackles. GASTROINTESTINAL: Abdomen soft, non-tender, nondistended. Hepatic and splenic margins not palpable. MUSCULOSKELETAL: Extremities without clubbing, cyanosis, or edema. NEUROLOGICAL: Awake and alert. No obvious cranial nerve deficits. PSYCHIATRIC: Appropriate mood and affect. 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 There has been no specific complaints of fever, chest pain, shortness of breath, abdominal pain, nausea, vomiting, or diarrhea. There is no dysuria. She states the pain is 10 out of 10 in her right face and lateral right neck. Rash is somewhat improved according to her daughter. She has no known drug allergies. she is been seen in Emergency room in the presence of her daughter Mrs. Mariama Aguayo. 07/28: Seen in her bedroom she has some Headache, but stable encourage for ambulation with Physical Therapy specialist asked yesterday and awaiting for recommendations, she normally takes Tylenol #3 at home. 07/29: Stable in her bedroom no nausea, vomit or diarrhea, replaced Potassium level also she has been on IV fluids, at low dose she wants to go home, discussed with nurse Miss Mai will give the antibiotics early today and probable will go home on [facility] to continue SNF for PT, will discharge after antibiotics given this afternoon. Assessment and Plan 1. Sepsis secondary to UTI and Right lower lung consolidations Pneumonia will continue Bronchodilator, Mucolytic and incentive spirometry, also Ceftriaxone and Azithromycin, blood cultures negative, Leukocytosis improved afebrile will give her antibiotics early and will discharge later today she will go to Home with [facility] for PT and Skilled nurse follow up. Gram negative rods as E coli will continue Amoxicillin and Clavulanic acid for seven more days. 2. Dehydration Improved. 3. Hyponatremia improved. 4. RA by history continue Home medicines 5. Hypertension controlled. continue Home medicines. DVT prophylaxis with Lovenox. Code Status Full Code. Discussed Condition With Patient and nurse Miss Pau delgadillo. all questions answered to the best of my abilities. Discharge Planning Discharge home today with HHC. Pt Condition on Discharge: Good Discharge Disposition: Disch w/ Home Health Serv Discharge Time: <= 30 minutes Discharge Instructions DIET: Follow Instructions for: Heart Healthy Diet Activities you can perform: Regular-No Restrictions Other Activity Instructions: Follow recommendations at home given by PT Deacon Hernandez MD Jul 29, 2017 15:32
[2017-07-29] MEDS: ENOXAPARIN SODIUM 40 MG/0.4 ML SYRINGE SQ SCH (17:21)
[2017-07-29] MEDS ORDERED: cefTRIAXone INJ 1,000 MG in SODIUM CHLORIDE 0.9% INJ 100 ML IV SCH ×4 (18:00)
[2017-07-29] MEDS ORDERED: AZITHROMYCIN INJ 500 MG in SODIUM CHLOR 0.9% 250 ML INJ 250 ML IV SCH ×4 (20:00)
== END 2017-07-29 19:05 | disposition home health service (06) | DRG 871 ==
LOC: NEPE 11:54 → NEDA 15:24 → N07B 20:08 → N07A 07-28 15:00
PROVIDERS: ADMIT Internal Medicine; ATTEND Internal Medicine
DX: A41.51 Sepsis due to Escherichia coli [E. coli] (principal); J18.9 Pneumonia, unspecified organism; B02.9 Zoster without complications; E86.0 Dehydration; E87.1 Hypo-osmolality and hyponatremia; N30.01 Acute cystitis with hematuria; M06.9 Rheumatoid arthritis, unspecified; I10 Essential (primary) hypertension; J45.909 Unspecified asthma, uncomplicated; B96.20 Unspecified Escherichia coli [E. coli] as the cause of diseases classified elsewhere
CPT/HCPCS: 71010; 80053; 81001; 82550; 83605; 83735; 84484; 85025; 85610; 85730; 87040; 87077; 87086; 87186; 93005; 94150; 94640; 94664; 96374; 96375; J0456; J0696; J1650; J2270; J2405; J7030; J7050